=== PATIENT | male | born 1965 | race Caucasian/White ===

== ENCOUNTER 2016-09-30 20:01 | Inpatient (IN) | payer BC, MEDICAID ==
--- NOTE | ~2016-09-30 | PN ---
Unit #: [id number] #: [id number] Patient: CHEMO HOFF [id number] [facility] [address] [place] [address] [id number] MR#: [id number] NAME: CHEMO HOFF ROOM: 71 Age: 51 Sex: M Admission Date: 09/30/2016 : 1965 Attending Physician: Cortez Fuller M.D. Admitting Physician: Cortez Fuller M.D. Primary Care Physician: Primary Care Physician Diana SALAVDOR PROGRESS NOTES DATE 10/06/2016 DISCUSSION The patient continues to exhibit severe tremulousness, and his last CIWA score was a 10. I will have to reinitiate the patient's CIWA protocol as he is clearly still experiencing symptoms of severe alcohol withdrawal, and I am concerned that he may be nearing delirium tremens. Dictated by... Cortez Fuller M.D. CB/anika TD: 10/06/2016 14:10 JOB #: [id number] [facility] PROGRESS NOTES Page 1 of 1 X Cortez Fuller MD X PROGRESS NOTE
--- NOTE | ~2016-09-30 | PN ---
Unit #: [id number] #: [id number] Patient: CHEMO HOFF [id number] [facility] [address] [place] [address] [id number] MR#: [id number] NAME: CHEMO HOFF ROOM: 71 Age: 51 Sex: M Admission Date: 09/30/2016 : 1965 Attending Physician: Cortez Fuller M.D. Admitting Physician: Cortez Fuller M.D. Primary Care Physician: Primary Care Physician Diana HIGH NOTES DATE 10/02/2016 DISCUSSION The patient is abed today, continuing to complain of significant symptoms of alcohol withdrawal. He offers no other complaints. Dictated by... Inez Wong TD: 10/02/2016 13:25 JOB #: [id number] [facility] PROGRESS NOTES Page 1 of 1 X Cortez Fuller MD X PROGRESS NOTE
--- NOTE | ~2016-09-30 | DS ---
Unit #: [id number] #: [id number] Patient: CHEMO HOFF [id number] [facility] [address] [place] [address] [id number] I MR#: [id number] NAME: CHEMO HOFF ROOM: [facility] Age: 51 Sex: M Admission Date: 09/30/2016 : 1965 Discharge Date: 10/11/2016 Attending Physician: Cortez Fuller M.D. Primary Care Physician: Primary Care Physician No DISCHARGE SUMMARY REASON FOR ADMISSION The patient is a 51-year-old , white male, admitted to the [address] [place] [address] for alcohol detox. HOSPITAL COURSE The patient was admitted to the [address] [place] [address] and placed on routine detoxification protocol for alcohol. His detox was an extremely large one and the patient required multiple doses of Ativan virtually around the clock as he continued to exhibit symptoms of autonomic hyperactivity and tremor as the patient's hospitalization progressed. His autonomic hyperactivity subsided; however, he did continue to exhibit signs of significant tremor and it is recommended that the patient consult his primary care physician or neurologist following discharge. Whatever the case, his detox was essentially complete. By 10/09/2016, he was in bright spirits and arrangements have been made for the patient to be transported back to [place] on 10/10/2016. Discharge was ordered. FINAL DIAGNOSES Alcohol use disorder; tremor, etiology uncertain; end-stage alcoholic liver disease. DISPOSITION ON DISCHARGE The patient is discharged on no psychotropic or other medications. FOLLOWUP Followup will take place through the auspices of community health resources in the [place], [place] area. PROGNOSIS The patient's prognosis is considered fair. Dictated by... Cortez Fuller M.D. CB/walt TD: 10/10/2016 18:48 JOB #: [id number] Unit #: [id number] #: [id number] Patient: CHEMO HOFF DISCHARGE SUMMARY Page 1 of 1 X Cortez Fuller MD X DISCHARGE SUMMARY
--- NOTE | ~2016-09-30 | PA ---
Unit #: [id number] #: [id number] Patient: CHEMO HOFF [id number] [facility] [address] [place] [address] [id number] I MR#: [id number] NAME: CHEMO HOFF ROOM: 71 Age: 51 Sex: M Admission Date: 09/30/2016 : 1965 Date of Assessment: 10/01/2016 Attending Physician: Cortez Fuller M.D. Admitting Physician: Cortez Fuller M.D. Primary Care Physician: Primary Care Physician No PSYCHIATRIC ASSESSMENT IDENTIFYING INFORMATION The patient is a 51-year-old unmarried white male admitted to the [address] [place] [address] for alcohol detox. INFORMANT(S) Patient. RELIABILITY Good. CHIEF COMPLAINT Alcohol detox. HISTORY OF PRESENT ILLNESS The patient is a 51-year-old white male with a long history of alcohol dependence. The patient reports that his last chemical dependence treatment occurred approximately 3 years ago. He is at the [facility] in [place]. 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 He lives with a roommate and reports that he has been drinking about a fifth of hard liquor on a daily basis. He reports that he has been unable to quit drinking over the past 3 weeks and sought treatment related thereto. He denies current suicidal or homicidal ideation and denies any psychotic symptoms. He denies prior psychiatric treatment apart from the one chemical dependence treatment 3 years ago. He states that he has been diagnosed with early cirrhotic liver disease secondary to his ongoing substance use. He denies abuse of other psychoactive substances. He denies current suicidal or homicidal ideation. PAST PSYCHIATRIC HISTORY As above. FAMILY HISTORY Noncontributory. SOCIAL HISTORY The patient lives with a roommate. He is employed at a factory in [place], [place]. He graduated from high school and completed 1 year of college. He reports substance use as noted previously and is a smoker. MEDICAL HISTORY Significant for a history of COPD and alcoholic liver disease as well as "borderline high blood pressure." Unit #: [id number] #: [id number] Patient: CHEMO HOFF MEDICATION HISTORY None. ALLERGIES Bentyl and tramadol. MENTAL STATUS EXAM At this time, reveals the patient to be a thin white male appearing perhaps a bit older than his stated age. He appears to be in significant physical distress and is notably tremulous throughout the interview. He is awake, alert and oriented in all spheres. His mood is dysphoric. His affect constricted. Speech is generally relevant and coherent. There are no gross deficits in memory or cognition noted. Intelligence is judged to be in the average range based on fund of knowledge. The patient is cooperative throughout the interview. He is currently reporting no suicidal/homicidal ideation or psychotic features. Judgement and insight appear to be intact. ASSETS AND LIABILITIES Patient's assets, motivation for change. Liabilities, none noted. ADMITTING DIAGNOSES 1. Alcohol use disorder. 2. Alcoholic liver disease. 3. Chronic obstructive pulmonary disease. PSYCHIATRIC PLAN/TREATMENT GOALS The patient remains hospitalized for safety and stabilization. Routine detoxification protocol for alcohol has been initiated. The patient will participate in appropriate vidal and milieu activities. DISCHARGE PLANNING Followup to take place through the auspices of community mental health resources in the [facility]. ESTIMATED LENGTH OF STAY Five to seven days. Dictated by... Cortez Fuller M.D. MAXIMUS/karthikeyan TD: 10/01/2016 15:58 JOB #: [id number] Unit #: [id number] #: [id number] Patient: CHEMO HOFF PSYCHIATRIC ASSESSMENT Page 1 of 1 X Cortez Fuller MD X PSYCHIATRIC ASSESSMENT
--- NOTE | ~2016-09-30 | PN ---
Unit #: [id number] #: [id number] Patient: CHEMO HOFF [id number] [facility] [address] [place] [address] [id number] MR#: [id number] NAME: CHEMO HOFF ROOM: 71 Age: 51 Sex: M Admission Date: 09/30/2016 : 1965 Attending Physician: Cortez Fuller M.D. Admitting Physician: Cortez Fuller M.D. Primary Care Physician: Primary Care Physician Diana SALVADOR PROGRESS NOTES DATE 10/07/2016 DISCUSSION The patient remains grossly tremulous and continues to score per his CIWA for ongoing Ativan virtually every shift. His detox is thus far no where near complete from the looks of his presentation today and we continue aggressive treatment for his alcohol withdrawal. Dictated by... Cortez Fuller M.D. CB/karthikeyan TD: 10/07/2016 15:54 JOB #: [id number] [facility] PROGRESS NOTES Page 1 of 1 X Cortez Fuller MD PROGRESS NOTE
--- NOTE | ~2016-09-30 | PN ---
Unit #: [id number] #: [id number] Patient: CHEMO HOFF [id number] [facility] [address] [place] [address] [id number] I MR#: [id number] NAME: CHEMO HOFF ROOM: 71 Age: 51 Sex: M Admission Date: 09/30/2016 : 1965 Attending Physician: Cortez Fuller M.D. Admitting Physician: Cortez Fuller M.D. Primary Care Physician: Primary Care Physician Diana SALVADOR PROGRESS NOTES DATE 10/04/2016 DISCUSSION The patient remains grossly tremulous and continues to complain of significant symptoms of alcohol withdrawal. We continue current treatment but would expect discharge in the next few days with completion of detox. Dictated by... Cortez Fuller M.D. CB/bzpawan TD: 10/05/2016 06:48 JOB #: [id number] [facility] PROGRESS NOTES Page 1 of 1 X Cortez Fuller MD X PROGRESS NOTE
--- NOTE | ~2016-09-30 | HP ---
Unit #: [id number] #: [id number] Patient: FREDIS HOFF [id number] [place] [address] [id number] MR#: [id number] NAME: FREDIS HOFF ROOM: P171 Age: 51 Sex: M Admission Date: 09/30/2016 : 1965 Attending Physician: Cortez Fuller M.D. Admitting Physician: Cortez Fuller M.D. Primary Care Physician: Primary Care Physician No HISTORY AND PHYSICAL HISTORY OF PRESENT ILLNESS Fredis is a 51 year old admitted to [facility] because of his continued abuse of alcohol. PAST MEDICAL HISTORY 1. Long history of alcohol abuse. 2. History of withdrawal seizures. PAST SURGICAL HISTORY 1. Right inguinal hernia repair. 2. 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 3. Fractured left ankle with ORIF. ALLERGIES Tramadol. SOCIAL HISTORY Smokes greater than 1 pack per day. Drinks at least fifth of liquor on a daily basis and admits to using marijuana on occasion. FAMILY HISTORY Medically noncontributory. REVIEW OF SYSTEMS CONSTITUTIONAL: No fever or chills. HEENT: Denies any sore throat, ear pain or runny nose. CARDIOVASCULAR: Denies chest pain, irregular heart rhythm or palpitations. CHEST: Denies shortness of breath or cough. No hemoptysis. GASTROINTESTINAL: Denies nausea, vomiting, diarrhea or chronic constipation. ENDOCRINE: Denies history of increased thirst or urination. No recent significant weight loss or gain. GENITOURINARY: Denies dysuria, frequency, or hematuria. SKIN: Denies any rashes. HEMATOLOGIC: Denies history of increased bleeding or bruising. MUSCULOSKELETAL: Denies any hot, swollen joints. No generalized muscle pain. NEUROLOGIC: Denies problems with vision or speech. No frequent, severe headaches. No numbness, tingling or weakness in any extremities. Denies loss of bladder or bowel control. CURRENT MEDICATIONS Detox protocol. Unit #: [id number] #: [id number] Patient: FREDIS HOFF PHYSICAL EXAMINATION GENERAL: Alert, well-nourished, in no apparent distress. VITAL SIGNS: Blood pressure 130/70, heart rate 70, respirations 16, temperature 98.6. WEIGHT: 145. HEIGHT: 6 feet 1 inch. SKIN: Warm and dry without rash or lesion. HEENT: Normocephalic. TMs not viewed. Oral and nasal passages clear. Conjunctivae clear. PERRLA. EOMs intact. NECK: Supple without lymphadenopathy or thyromegaly. HEART: Regular rate and rhythm without murmur. LUNGS: Clear. ABDOMEN: Soft, nontender. : Not done. EXTREMITIES: No evidence of cyanosis, clubbing or edema. Moves all without focal deficit. NEUROLOGICAL: Grossly within normal limits. Cranial Nerves: II: Visual desai are intact. III, IV AND : Extraocular movements are intact. Pupils are equal, round and reactive to light. V: Facial sensation is grossly normal. VII: Facial movements and expression are normal. VIII: Auditory acuity grossly intact. IX, X: Uvula is midline. Phonation is normal. XI: Patient shrugs shoulders and turns head normally. XII: Tongue protrudes in the midline. Sensory and Motor Function: Sensory and motor sensation is grossly normal. Motor: moves all extremities well. Coordination: Gait is normal. Deep Tendon Reflexes: Intact. IMPRESSION Psychiatric admission. RECOMMENDATIONS PSYCHIATRIC: Per psychiatrist. MEDICAL: See no contraindications to participate in facility's activities. MEDICAL PROGNOSIS Good. MEDICAL CONDITION Stable. Dictated by... Hector HouseAYonny. for Inez Amos/karthikeyan TD: 10/01/2016 19:07 JOB #: [id number] Unit #: [id number] #: [id number] Patient: FREDIS HOFF HISTORY AND PHYSICAL Page 1 of 1 X Ninfa Benson HISTORY AND PHYSICAL
--- NOTE | ~2016-09-30 | A ---
[facility] Nutrition Therapy DATE: 10/01/16 Patient: CHEMO HOFF Physician: VERNA Address: [address] Room/Bed: [address], Zip: [place] [address] Admit Date: 09/30/16 Date of : [birth year] Height: 6 1.5 Weight: [phone] NUTRITIONAL ASSESSMENT: REASON: NUTRITION RISK POINT- UNINTENTIONAL WEIGHT LOSS PATIENT ADMITTED FOR ETOH DETOX PMH: HTN Anthropometrics: HT: 5'10, WT: 145#, BMI: 20.8, %IBW: 87 Labs: NO LABS AVAILABLE Meds: DETOX PROTOCOL Assessment: PATIENT IS A 51 Y/O MALE ADMITTED FOR ETOH DETOX. PATIENT IS CURRENTLY EMPLOYED, HAS STABLE HOUSING, SMOKES 2 PPD, AND DRINKS A FIFTH ETOH DAILY. PATIENT HAS A HX OF INPATIENT CHEMICAL DEPENDENCY TREATMENT. PATIENT STATED A POOR APPETITE WITH A 30# WEIGHT LOSS OVER LAST SEVERAL MONTHS AND HAS NOT BEEN SLEEPING. WEIGHT HX PER [facility] SHOWS A WEIGHT OF 138# ONE YEAR AGO, WHICH WOULD BE A 7# INCREASE. PATIENT IS HAVING ACTIVE WITHDRAWAL SYMPTOMS INCLUDING TREMORS, DIARRHEA, SWEATING, NERVOUSNESS, AND IRRITABILITY. THERE ARE CURRENTLY NO SKIN ISSUES NOTED ATT. PATIENT IS ON A REGULAR DIET WITH NO CAFFEINE. Dx: INADEQUATE NUTRIENT INTAKE R/T CURRENT CONDITION, DETOXING KRYSTLE <90% IBW, DECREASED APPETITE, SELF-REPORTED WEIGHT LOSS, NUTRITION RISK POINT Intervention: REGULAR DIET, MEDS PER MD, PSYCH, DETOX Monitoring, Evaluation and Goals: 1. ADEQUATE PO INTAKES >50% OF MEALS 2. PREVENT, CORRECT MICRO/MACRO NUTRIENT DEFICIENCIES MONITOR: WEIGHTS, LABS, PO/FLUID INTAKES Recommendations: 1. CONTINUE REGULAR DIET WITH NO CAFFEINE TOLERATED. IF PATIENT HAS C/O HUNGER PLEASE OFFER SNACKS THROUGHOUT THE DAY AND SEND ORDER FOR LARGE PORTION ENTREES AND RD WILL APPROVE. 2. ENCOURAGE ADEQUATE PO AND FLUID INTAKES. PATIENT IS AT A RISK FOR DEHYDRATION D/T DIARRHEA 3. OBTAIN WEIGHTS ROUTINELY [facility] Nutrition Therapy DATE: 10/01/16 Patient: CHEMO HOFF Physician: VERNA Address: [address] Room/Bed: [address], Zip: [place] [address] Admit Date: 09/30/16 Date of : [birth year] Height: 6 1.5 Weight: [id number] TO F/U PER PROTOCOL AND PRN R/T PATIENT MILDLY COMPROMISED Respectfully, SAMANTHA ZIMMERMAN RD, LD [facility] Nutrition[facility] cc: client file
--- NOTE | ~2016-09-30 | PN ---
Unit #: [id number] #: [id number] Patient: CHEMO HOFF [id number] [facility] [address] [place] [address] [id number] MR#: [id number] NAME: CHEMO HOFF ROOM: 71 Age: 51 Sex: M Admission Date: 09/30/2016 : 1965 Attending Physician: Cortez Fuller M.D. Admitting Physician: Cortez Fuller M.D. Primary Care Physician: Primary Care Physician Diana SALVADOR PROGRESS NOTES DATE 10/09/2016 DISCUSSION The patient's detox continues. His vital signs seem to be stabilizing. He remains quite tremulous. However, he reports that he has a preexisting tremor. I have told this patient to expect Tuesday discharge. Dictated by... Cortez Fuller M.D. CB/anika TD: 10/09/2016 14:43 JOB #: [id number] [facility] PROGRESS NOTES Page 1 of 1 X Cortez Fuller MD X PROGRESS NOTE
--- NOTE | ~2016-09-30 | PN ---
Unit #: [id number] #: [id number] Patient: CHEMO HOFF [id number] [facility] [address] [place] [address] [id number] MR#: [id number] NAME: CHEMO HOFF ROOM: 71 Age: 51 Sex: M Admission Date: 09/30/2016 : 1965 Attending Physician: Cortez Fuller M.D. Admitting Physician: Cortez Fuller M.D. Primary Care Physician: Primary Care Physician Diana SALVADOR PROGRESS NOTES DATE 10/05/2016 DISCUSSION The patient remains grossly tremulous and continues to require Ativan virtually every shift. He is clearly not "out of the mccrary" with regards to his alcohol detox and we will continue to observe. Dictated by... Cortez Fuller M.D. MAXIMUS/karthikeyan TD: 10/05/2016 17:25 JOB #: [id number] [facility] PROGRESS NOTES Page 1 of 1 X Cortez Fuller MD PROGRESS NOTE
--- NOTE | ~2016-09-30 | PN ---
Unit #: [id number] #: [id number] Patient: CHEMO HOFF [id number] [facility] [address] [place] [address] [id number] MR#: [id number] NAME: CHEMO HOFF ROOM: [facility] Age: 51 Sex: M Admission Date: 09/30/2016 : 1965 Attending Physician: Cortez Fuller M.D. Admitting Physician: Cortez Fuller M.D. Primary Care Physician: Primary Care Physician Diana SALVADOR PROGRESS NOTES DATE 10/08/2016 DISCUSSION The patient's detox continues to be arduous one as he continues to exhibit a tremor and continues to inquire virtually around the clock Ativan for the CIWA score. We continue with his current treatment. Dictated by... Cortez Fuller M.D. CB/eldon TD: 10/08/2016 21:18 JOB #: [id number] [facility] PROGRESS NOTES Page 1 of 1 X Cortez Fuller MD X PROGRESS NOTE
--- NOTE | ~2016-09-30 | PN ---
Unit #: [id number] #: [id number] Patient: CHEMO HOFF [id number] [facility] [address] [place] [address] [id number] MR#: [id number] NAME: CHEMO HOFF ROOM: 71 Age: 51 Sex: M Admission Date: 09/30/2016 : 1965 Attending Physician: Cortez Fuller M.D. Admitting Physician: Cortez Fuller M.D. Primary Care Physician: Primary Care Physician Diana SALVADOR PROGRESS NOTES DATE 10/03/2016 DISCUSSION The patient seems to be a bit less uncomfortable today and is more active within the therapeutic milieu. He is less tremulous and his detox should be resolving within the next couple of days. Dictated by... Cortez Fuller M.D. CB/ajay TD: 10/03/2016 15:50 JOB #: [id number] [facility] PROGRESS NOTES Page 1 of 1 X Cortez Fuller MD X PROGRESS NOTE
== END 2016-10-11 09:25 | disposition home or self-care (01) | DRG 897 ==
LOC: P1E 20:01
PROC: HZ2ZZZZ Detoxification Services for Substance Abuse Treatment (ICD-10-PCS; principal; 2016-10-01)
DX: F10.231 Alcohol dependence with withdrawal delirium (principal); F10.288 Alcohol dependence with other alcohol-induced disorder; K70.9 Alcoholic liver disease, unspecified; G40.509 Epileptic seizures related to external causes, not intractable, without status epilepticus; F17.210 Nicotine dependence, cigarettes, uncomplicated
CPT/HCPCS: 86592